=== PATIENT | male | born 1955 | race African-American/Black ===

== ENCOUNTER 2022-07-16 03:32 | Observation (INO) | payer OTHER ==
[2022-07-16 04:58] LABS: EOS % 2.4 % (0-4.5); HEMOGLOBIN 12.7 GM/dL (11.7-16.9); LYMPH % 34.5 % (8-40); MCH 27.8 pg (25.7-33.7); MCHC 33.3 g/dl (32.0-35.9); MEAN CELL VOLUME 83.4 fl (80-96); MEAN PLT VOLUME 8.9 fl (7.5-11.1); NEUT % 55.1 % (42.8-82.8); PLATELET COUNT 291 10^3/uL (134-434); RBC 4.56 M/mm3 (4.00-5.60); WHITE BLOOD COUNT 7.6 K/mm3 (4.0-10.0)
[2022-07-16 05:14] LABS: INR 1.01 (0.83-1.09); PROTHROMBIN TIME (PATIENT) 11.6 SEC (9.7-13.0)
[2022-07-16 05:17] LABS: ACTIVATED PTT 20.5 SECONDS (25.2-36.5)
[2022-07-16 05:20] LABS: CALCIUM 8.6 mg/dL (8.5-10.1)
[2022-07-16 05:21] LABS: MAGNESIUM 2.1 mg/dL (1.8-2.4)
[2022-07-16 05:23] LABS: CREATININE 1.5 mg/dL (0.55-1.3)
[2022-07-16 05:25] LABS: BILIRUBIN,TOTAL 0.3 mg/dL (0.2-1); TOT PROT 7.6 g/dl (6.4-8.2)
[2022-07-16 05:29] LABS: N-TERMINAL BNP 19.8 pg/ml (5-125)
[2022-07-16 07:20] LABS: CALCIUM 8.6 mg/dL (8.5-10.1)
[2022-07-16 07:23] LABS: CREATININE 1.3 mg/dL (0.55-1.3)
[2022-07-16 07:24] LABS: BILIRUBIN,TOTAL 0.2 mg/dL (0.2-1); TOT PROT 7.3 g/dl (6.4-8.2)
[2022-07-16] MEDS ORDERED: HEPARIN NA (PORCINE) 5,000 UNITS/ML 1ML VIAL ONE (13:11)
[2022-07-16] MEDS ORDERED: FUROSEMIDE 40 MG/4 ML INJECTABLE VIAL ONE (13:11)
[2022-07-16] MEDS: HEPARIN NA (PORCINE) 5,000 UNITS/ML 1ML VIAL SQ SCH ×2 (13:17→22:20)
[2022-07-16] MEDS: FUROSEMIDE 40 MG/4 ML INJECTABLE VIAL IVPUSH SCH (13:17)
[2022-07-16 15:10] VITALS: RESP 18
[2022-07-16 17:59] VITALS: BMI 50.7
[2022-07-16 19:08] LABS: URINE APPEARANCE CLEAR; URINE BILIRUBIN NEGATIVE (NEGATIVE); URINE COLOR YELLOW; URINE GLUCOSE (UA) NEGATIVE (NEGATIVE); URINE KETONE NEGATIVE (NEGATIVE); URINE LEUK ESTERASE NEGATIVE (NEGATIVE); URINE NITRITE NEGATIVE (NEGATIVE); URINE PROTEIN NEGATIVE (NEGATIVE); URINE UROBILINOGEN 0.2 mg/dL (0.2-1.0)
[2022-07-17] MEDS ORDERED: ACETAMINOPHEN 1000 MG/100 ML BAG IVPB ONE (05:22)
[2022-07-17] MEDS: HEPARIN NA (PORCINE) 5,000 UNITS/ML 1ML VIAL SQ SCH (06:36)
[2022-07-17 08:33] LABS: EOS % 2.2 % (0-4.5); HEMATOCRIT 38.7 % (35.4-49); HEMOGLOBIN 12.7 GM/dL (11.7-16.9); LYMPH % 30.8 % (8-40); MCH 27.5 pg (25.7-33.7); MCHC 32.8 g/dl (32.0-35.9); MEAN CELL VOLUME 83.9 fl (80-96); MONO % 4.8 % (3.8-10.2); NEUT % 61.2 % (42.8-82.8); PLATELET COUNT 304 10^3/uL (134-434); RBC 4.61 M/mm3 (4.00-5.60); RDW 16.3 % (11.9-15.9); WHITE BLOOD COUNT 7.5 K/mm3 (4.0-10.0)
[2022-07-17 08:44] LABS: ALBUMIN 3.3 g/dl (3.4-5.0); BLOOD UREA NITROGEN 16.6 mg/dL (7-18); CALCIUM 9.1 mg/dL (8.5-10.1); MAGNESIUM 2.2 mg/dL (1.8-2.4)
[2022-07-17 08:46] LABS: CREATININE 1.3 mg/dL (0.55-1.3)
[2022-07-17 08:48] LABS: BILIRUBIN,TOTAL 0.6 mg/dL (0.2-1); TOT PROT 7.6 g/dl (6.4-8.2)
[2022-07-17] MEDS: FUROSEMIDE 40 MG/4 ML INJECTABLE VIAL IVPUSH SCH (09:47)
[2022-07-17 11:47] VITALS: BP 162/89; PULSE 71; TEMP 97.9
== END 2022-07-17 11:51 | disposition home or self-care (01) ==
LOC: JER 03:32 → JERBED 05:00 → INTOOBSV 05:00 → J4W 16:42
PROVIDERS: ADMIT Internal Medicine
PROC: 3E033GC Introduction of Other Therapeutic Substance into Peripheral Vein, Percutaneous Approach (ICD-10-PCS; principal; 2022-07-16)
DX: N17.9 Acute kidney failure, unspecified (principal); R06.09 Other forms of dyspnea; I50.9 Heart failure, unspecified; R22.40 Localized swelling, mass and lump, unspecified lower limb; Z29.8 Encounter for other specified prophylactic measures; I45.2 Bifascicular block; E66.01 Morbid (severe) obesity due to excess calories; Z68.43 Body mass index [BMI] 50.0-59.9, adult
CPT/HCPCS: 0241U-QW; 36415; 71045-TC-FY; 71275-TC; 76775-TC; 80053; 80061; 81003; 82570; 83735; 83880; 84100; 84156; 84300; 84443; 84484; 85025; 85379; 85610; 85730; 93005; 93010; 93306-TC; 93970-TC; 96374; 99285-25; G0378; J1644; Q9967